=== PATIENT | female | born 1945 | race Caucasian/White ===

== ENCOUNTER → 2018-10-12 11:30 | Outpatient (CLI) | payer MEDICARE, BC ==
[2014-11-28 08:48] VITALS: BMI 28.3
[~2018-10-12 11:30] MED LIST: CELEXA40 MG PO; COZAAR50 MG PO; HYDROCHLOROTHIA25 MG PO; LOPID600 MG PO; METOPROLOL TAR100 M1 PO
== END | disposition home or self-care (01) ==
LOC: D.US 11:30
PROVIDERS: ATTEND Family Medicine
DX: M79.604 Pain in right leg (principal); R60.0 Localized edema

== ENCOUNTER → 2019-01-19 10:15 | Outpatient (CLI) | payer MEDICARE, BC ==
[2014-11-28 08:48] VITALS: BMI 28.3
--- NOTE | ~2019-01-19 | EC ---
PATIENT:ELINA SY DATE OF SERVICE: 01/19/19 SEX: F MEDICAL RECORD: [id number] DATE OF : 41 LOCATION:D[facility] AGE OF PATIENT: 73 ADMISSION DATE: 01/19/19 REFERRING PHYSICIAN: INTERPRETING PHYSICIAN: CASSIA TINOCO MD ECHOCARDIOGRAM REPORT ECHO CHARGES 4 ECHO COMPLETE Date: 01/19/19 CLINICAL DIAGNOSIS: CAD HX HTN/PACEMAKER ECHOCARDIOGRAPHIC MEASUREMENTS (adult normal given) AC root (d.<3.7cm) 3.1 cm LV Septum d (<1.2 cm> 1.2 cm Valve Excursion 1.6 cm LV Septum (systole) 1.4 cm Left Atria (s.<4.0cm> 3.5 cm LVPW d(<1.2cm) 1.5 cm RV (d.<2.3cm) 3.8 cm LVPW (sytole) 1.8 cm LV diastole(<5.6CM) 4.6 cm MV E-F(>70mm/sec) cm LV systole 2.9 cm LVOT Diameter 1.7 cm MV exc.(>10mm) 1.2 cm Est.ejection fraction (50-75%) % DOPPLER: LVIT cm/sec A 100.0cm/sec E 66.0 cm/sec LA cm/sec RVSP 27 mmHg LVOT 114 cm/sec AOP1/2T m/s Asc. Ao 129 cm/sec RVOT 91 cm/sec RA cm/sec PA 105 cm/sec AV Gradient Peak 10.01mmHg AV Mean 5.04 mmHg AV Area 2.0 cm MV Gradient Peak 5.18 mmHg MV Mean 1.81 mmHg MV Area cm COMMENTS: Foam Rubber Mixer: 2 CICI MARTINEZ Medical Laboratory Technician: 3 Dr. Archibald TAPE# PACS Pericardial Effusion N DATE OF SERVICE: Adequate 2D, color flow, spectral Doppler, and M-mode No LVH. LV internal dimension is normal. Wall motion is normal. EF is greater than or equal to 55%. Aortic valve is tricuspid. No evidence of stenosis with Doppler interrogation. Left atrium is normal at 3.5 cm. Mitral valve shows no prolapse. Mild MR. Right-sided chambers are grossly normal. Mild TR. Incidental note of pacemaker lead in the RV apex. ECHOCARDIOGRAM REPORT [id number] ELINA SY TRANSINT:[id number] Voice Confirmation ID: [id number] DOCUMENT ID: [id number] CASSIA TINOCO MD CC: [id number] DICTATION DATE: 01/24/19 1433 SURVEY ASSOCIATE: 01/24/191816 DEP CLI 01/19/19 [place] [id number] [place] [id number]
== END | disposition home or self-care (01) ==
LOC: D.HCCECHO 10:15
PROVIDERS: ATTEND Internal Medicine Interventional Cardiology
DX: I25.10 Atherosclerotic heart disease of native coronary artery without angina pectoris (principal)

== ENCOUNTER 2020-07-30 16:17 | Inpatient (IN) | payer MEDICARE, BC ==
[~2020-07-30] VITALS: Ht 165.1 cm; Wt 87.1 kg
[2020-07-30 17:52] LABS: BASOPHILS 0.4 % (0-2); EOSINOPHILS 0 % (0-7); HEMATOCRIT 39.1 % (36.0-48.0); LYMPHOCYTES 5.4 % (15-50); MCH 28.8 pg (26.0-34.0); MCHC 33.4 g/dL (31.0-37.0); MCV 86.3 fL (80.0-100.0); MEAN PLATELET VOLUME 8.1 fL (7.4-10.4); MONOCYTES 5.6 % (2-11); NEUTROPHILS 88.6 % (40-80); PLATELET COUNT 196 10x3/uL (130-400); RBC 4.53 10x6/uL (4.00-5.40); RDW 15.3 % (11.5-14.5); WBC 9.7 10x3/uL (4.8-10.8)
[2020-07-30 18:01] LABS: CALC OSMOLALITY 284 mosm/kg (275-300); CALCIUM 8.5 mg/dL (8.5-10.1); CARBON DIOXIDE 28.7 mmol/L (21.0-32.0); CHLORIDE - SERUM 100 mmol/L (98-107); CREATININE - SERUM 0.8 mg/dL (0.6-1.3); POTASSIUM - SERUM 3.8 mmol/L (3.5-5.1); SODIUM 138 mmol/L (136-145); UREA NITROGEN 20 mg/dL (7-18); eGFR NON AFRICAN AMERICAN 74 mL/min (90-120)
[2020-07-30 18:06] LABS: GLUCOSE 198 mg/dL (74-106)
[2020-07-30 18:09] LABS: INR 1.17 (0.85-1.17); PROTIME 13.8 SECONDS (11.6-15.0)
[2020-07-30 18:10] LABS: APTT 30.3 SECONDS (22.8-39.4)
[2020-07-30 18:15] LABS: ALBUMIN 3.6 g/dL (3.4-5.0); ALKALINE PHOSPHATASE 69 U/L (30-120); ALT (SGPT) 22 U/L (10-68); BILIRUBIN - TOTAL 0.43 mg/dL (0.2-1.3); CKMB 1.8 U/L (0.0-3.6); CREATINE KINASE 240 UL (21-215); PRO BNP 4622 pg/mL (0-450)
[2020-07-30 18:19] LABS: TROPONIN-I < 0.017 ng/mL (0.000-0.060)
[2020-07-30 20:52] VITALS: BP 189/66
--- NOTE | 2020-07-30 22:49 | NUR ---
PT AWAKE AND UP TO THE BATHROOM FREQUENTLY D/T LASIX. VSS AND NO C/O AT THIS TIME. WAITING FOR BED ASSIGNMENT.
[2020-07-30 23:00] VITALS: BP 174/70
[2020-07-31 04:49] VITALS: BP 177/80
[2020-07-31 06:45] VITALS: BP 169/69
[2020-07-31 11:09] LABS: SARS-CoV-2 ANTIGEN NEGATIVE- SARS-COV-2 (NEGATIVE)
--- NOTE | 2020-07-31 13:53 | MORECARE ---
CASE MANAGEMENT DISCHARGE SUMMARY PATIENT: ELINA ANGULO UNIT: [id number] ADM DATE: 07/30/20 AGE: 75 : 43 SEX: F ROOM/BED: D.0874 AUTHOR: ASHLEY RUIZ PHYSICIAN: REFERRING PHYSICIAN: ANH YUNG MD DATE OF SERVICE: 07/31/20 Case Management Discharge Planning Summary COMMENTS ENTERED DATE: 07/31/20 13:50 CT COMMENT TYPE: Discharge Planning REVIEWER: Magdiel Gonzalez Telephone conversation with patient's spouse, Zachery Angulo, at 1328 on 31 July 2020 to complete DC plan and needs per current isolation protocol. Patient lives independently with her spouse. Mr. Angulo stated that his takes care of their disabled son and he is worried about her ability to continue taking care their son after this hospitalization. Mr. Angulo stated that their home is safe and has electricity and running water. Mr. Angulo stated that the patient can enter and move about their home without difficulty. Mr. Angulo stated that they have no problems paying for medications and she fills her medications at [facility] on [address]. Mr. Angulo stated that the patient's primary care physician is Dr. Landaverde. At discharge, the Mr. Angulo plans for his to return home and feels this is a safe discharge. CM discussed availability of home health, rehab services, and medical equipment. Mr. Angulo declined HHS, SNF, and IPR at this time. Mr. Angulo stated that he would like oxygen supplies should his need them through [facility]. CLEOPATRA telephonically signed and placed in chart. Mr. Angulo stated that the patient uses a cane occasionally and has a shower chair, elevated toilet seat, and walker from her mother. Mr. Angulo voiced no other needs at this time and is satisfied with DC plan. CM will continue to follow and will assist as needed with dc plans/needs DCP REVIEW SUMMARY ANTICIPATED D/C DATE: EXPECTED LOS : CASE STATUS: DCP Initiated INITIAL REVIEW: 07/30/2020 INITIAL REVIEWER: Magdiel Gonzalez FINAL DISCHARGE DISPOSITION: : FINAL REVIEWER: FINAL REVIEW DATE: DCP Focus Questions & Answers DCP Evaluation QUESTION: ANSWER Patient's current cognitive status: : *Oriented to person, place, situation, time and present Family / Caregiver's ability to cope with chronic illness: : a. Adequate (ability to meet patient's medical needs, ensures patient attends medical appts.) Patient and/or caregiver agree upon recommended discharge plan? : Yes Patient gives permission to discuss discharge plans with: (name, relationship and number) : spouse, Zachery Angulo, Patient's ability to cope with chronic illness : d. No chronic illness Functional screen assessment: : Basic needs can adequately be met by self Does the patient have the ability to pay for or attain post discharge needs / services? : Yes Physical Status: : Independent with ADL's Family / Caregiver's ability to cope with chronic illness: : a. Adequate (ability to meet patient's medical needs, ensures patient attends medical appts.) Is there a likelihood that the patient will require additional services to return to the preadmission environment? : No Equipment needed for post hospitalization: : None Living Arrangements: : Home with Spouse/Significant Other Patient with capacity for self-care or can be cared for in same environment as prior to hospitalization? : Yes Baseline cognitive status: : *Oriented to person, place, situation, time and present Physical environment modification needed / anticipated for discharge: : No Medication Management: : Patient states can afford medications Medication Management: : Patient states can read and understand medication labels Pharmacy name(s): : [facility] [address] Does Patient have transportation to get home and to follow-up medical appointments when discharged from the hospital? : Yes Would patient like to participate in any Care Coordination programs (if applicable): : Not applicable Does the patient have electricity at home? : Yes Does the patient have running water in their house? : Yes Equipment in use: : Cane - Single Leg Equipment in use: : Shower Chair Equipment in use: : Walker - Rolling Mental health screen: : No mental health history DCP Re-evaluation QUESTION: ANSWER Would patient like to participate in any Care Coordination programs (if applicable): : Not applicable PATIENT: ELINA ANGULO ENCOUNTER: [id number] MEDICAL RECORD#: [id number] ADMISSION DATE: 07/30/2020 DISCHARGE DATE: ATTENDING MD: ANH KOCH : AGE: 75 MARITAL STATUS: M DC PLAN ID: [id number] FACILITY: [facility] PRINTED ON: 07/31/20 13:53 CT All edits/amendments must be made on the electronic document DICTATION DATE: 07/31/201352 PRODUCT CRAFTSMAN: JEM 07/31/20 135 RPT#: [id number] DC DATE: STATUS: ADM IN [facility] [address] [place] [address] END OF REPORT
[2020-07-31 13:56] VITALS: BP 150/59; BMI 32.0
--- NOTE | 2020-07-31 18:52 | NUR ---
NEW IV STARTED TO LEFT AC D/T INFILTRATION TO RIGHT FA. PT TOLERATED WELL. FLUSHED WITH 10ML NS, BLOOD RETURN NOTED.
[2020-07-31 21:21] VITALS: BP 173/64
[2020-08-01 00:27] VITALS: BP 159/62
[2020-08-01 06:16] VITALS: BP 172/82
[2020-08-01 06:25] LABS: BASOPHILS 0.4 % (0-2); EOSINOPHILS 0 % (0-7); HEMATOCRIT 37.7 % (36.0-48.0); HEMOGLOBIN 12.7 g/dL (12-16); MCH 28.9 pg (26.0-34.0); MCHC 33.8 g/dL (31.0-37.0); MCV 85.5 fL (80.0-100.0); MEAN PLATELET VOLUME 8.6 fL (7.4-10.4); MONOCYTES 11.8 % (2-11); NEUTROPHILS 72.8 % (40-80); PLATELET COUNT 223 10x3/uL (130-400); RBC 4.41 10x6/uL (4.00-5.40); RDW 14.9 % (11.5-14.5)
[2020-08-01 06:37] LABS: WBC 6.6 10x3/uL (4.8-10.8)
[2020-08-01 06:38] LABS: CALCIUM 8.6 mg/dL (8.5-10.1); CARBON DIOXIDE 30.5 mmol/L (21.0-32.0); CHLORIDE - SERUM 102 mmol/L (98-107); CREATININE - SERUM 0.7 mg/dL (0.6-1.3); POTASSIUM - SERUM 3.4 mmol/L (3.5-5.1); SODIUM 140 mmol/L (136-145); eGFR NON AFRICAN AMERICAN 86 mL/min (90-120)
[2020-08-01 06:54] LABS: CALC OSMOLALITY 285 mosm/kg (275-300); GLUCOSE 120 mg/dL (74-106); UREA NITROGEN 29 mg/dL (7-18)
--- NOTE | 2020-08-01 08:15 | MORECARE ---
CASE MANAGEMENT DISCHARGE SUMMARY PATIENT: ELINA ANGULO UNIT: [id number] ADM DATE: 07/30/20 AGE: 75 : 43 SEX: F ROOM/BED: D.0678 AUTHOR: ASHLEY RUIZ PHYSICIAN: REFERRING PHYSICIAN: ANH YUNG MD DATE OF SERVICE: 08/01/20 Case Management Discharge Planning Summary COMMENTS ENTERED DATE: 07/31/20 13:50 CT COMMENT TYPE: Discharge Planning REVIEWER: Magdiel Gonzalez Telephone conversation with patient's spouse, Zachery Angulo, at 1328 on 31 July 2020 to complete DC plan and needs per current isolation protocol. Patient lives independently with her spouse. Mr. Angulo stated that his takes care of their disabled son and he is worried about her ability to continue taking care their son after this hospitalization. Mr. Angulo stated that their home is safe and has electricity and running water. Mr. Angulo stated that the patient can enter and move about their home without difficulty. Mr. Angulo stated that they have no problems paying for medications and she fills her medications at [facility] on [address]. Mr. Angulo stated that the patient's primary care physician is Dr. Landaverde. At discharge, the Mr. Angulo plans for his to return home and feels this is a safe discharge. CM discussed availability of home health, rehab services, and medical equipment. Mr. Angulo declined HHS, SNF, and IPR at this time. Mr. Angulo stated that he would like oxygen supplies should his need them through [facility]. CLEOPATRA telephonically signed and placed in chart. Mr. Angulo stated that the patient uses a cane occasionally and has a shower chair, elevated toilet seat, and walker from her mother. Mr. Angulo voiced no other needs at this time and is satisfied with DC plan. CM will continue to follow and will assist as needed with dc plans/needs DCP REVIEW SUMMARY ANTICIPATED D/C DATE: EXPECTED LOS : CASE STATUS: DCP Initiated INITIAL REVIEW: 07/30/2020 INITIAL REVIEWER: Magdiel Gonzalez FINAL DISCHARGE DISPOSITION: : FINAL REVIEWER: FINAL REVIEW DATE: DCP Focus Questions & Answers DCP Evaluation QUESTION: ANSWER Patient's ability to cope with chronic illness : d. No chronic illness Patient gives permission to discuss discharge plans with: (name, relationship and number) : spouse, Zachery Angulo, Patient and/or caregiver agree upon recommended discharge plan? : Yes Family / Caregiver's ability to cope with chronic illness: : a. Adequate (ability to meet patient's medical needs, ensures patient attends medical appts.) Patient's current cognitive status: : *Oriented to person, place, situation, time and present Family / Caregiver's ability to cope with chronic illness: : a. Adequate (ability to meet patient's medical needs, ensures patient attends medical appts.) Physical Status: : Independent with ADL's Does the patient have the ability to pay for or attain post discharge needs / services? : Yes Functional screen assessment: : Basic needs can adequately be met by self Living Arrangements: : Home with Spouse/Significant Other Equipment needed for post hospitalization: : None Is there a likelihood that the patient will require additional services to return to the preadmission environment? : No Baseline cognitive status: : *Oriented to person, place, situation, time and present Patient with capacity for self-care or can be cared for in same environment as prior to hospitalization? : Yes Physical environment modification needed / anticipated for discharge: : No Medication Management: : Patient states can read and understand medication labels Medication Management: : Patient states can afford medications Pharmacy name(s): : [facility] [address] Does Patient have transportation to get home and to follow-up medical appointments when discharged from the hospital? : Yes Would patient like to participate in any Care Coordination programs (if applicable): : Not applicable Does the patient have electricity at home? : Yes Does the patient have running water in their house? : Yes Equipment in use: : Walker - Rolling Equipment in use: : Shower Chair Equipment in use: : Cane - Single Leg Mental health screen: : No mental health history DCP Re-evaluation QUESTION: ANSWER Would patient like to participate in any Care Coordination programs (if applicable): : Not applicable PATIENT: ELINA ANGULO ENCOUNTER: [id number] MEDICAL RECORD#: [id number] ADMISSION DATE: 07/30/2020 DISCHARGE DATE: ATTENDING MD: ANH KOCH : AGE: 75 MARITAL STATUS: M DC PLAN ID: [id number] FACILITY: [facility] PRINTED ON: 08/01/20 8:15 CT All edits/amendments must be made on the electronic document DICTATION DATE: 08/01/20814 FOUNDRY HAND: JEM 08/01/20814 RPT#: [id number] DC DATE: STATUS: ADM IN [facility] [address] [place] [address] END OF REPORT
--- NOTE | 2020-08-01 08:38 | NUR ---
AM MEDS GIVEN AT THIS TIME WITH BREAKFAST TRAY. PT SITTING ON SIDE ON OF BED WATCHING TV. RR EVEN NON LABORED, PRODUCTIVE COUGH NOTED. O2 IN PLACE PER NC. PT AAOX4, PLEASANT AND DENIES ANY PAIN OR NEEDS. CLWR.
[2020-08-01 09:00] VITALS: BP 174/93
[2020-08-01 12:00] VITALS: BP 136/65
[2020-08-01 12:58] VITALS: Ht 165.1 cm; Wt 87.1 kg
--- NOTE | 2020-08-01 14:44 | NUR ---
SPOKE WITH INFECTION CONTROL AND DR KRUEGER REGARDING NEGATIVE PCR. PT ABLE TO GET OUT OF ISOLATION.
--- NOTE | 2020-08-01 14:46 | NUR ---
COVID 19 PCR Negative, may discontinue Enhanced Droplet Isolation.
--- NOTE | 2020-08-01 15:22 | NUR ---
FAMILY BROUGHT SOME CLOTHING TO ROOM AT THIS TIME, MEDS GIVEN PER EMAR. PT SITTING ON SIDE OF BED. RR EVEN NON LABORED. AWAKE AND ALERT. NO NEEDS VOICED. CLWR.
[2020-08-01 20:16] VITALS: BP 168/71
[2020-08-01 23:46] VITALS: BP 174/75
[2020-08-02 05:18] LABS: BASOPHILS 0.1 % (0-2); EOSINOPHILS 0.1 % (0-7); HEMATOCRIT 39.4 % (36.0-48.0); HEMOGLOBIN 13.1 g/dL (12-16); LYMPHOCYTES 14.4 % (15-50); MCH 28.5 pg (26.0-34.0); MCHC 33.3 g/dL (31.0-37.0); MCV 85.7 fL (80.0-100.0); MEAN PLATELET VOLUME 8.1 fL (7.4-10.4); MONOCYTES 4.7 % (2-11); NEUTROPHILS 80.7 % (40-80); PLATELET COUNT 240 10x3/uL (130-400); RDW 15.1 % (11.5-14.5)
[2020-08-02 05:24] VITALS: BP 153/72
[2020-08-02 05:47] LABS: CALC OSMOLALITY 289 mosm/kg (275-300); CALCIUM 8.6 mg/dL (8.5-10.1); CHLORIDE - SERUM 100 mmol/L (98-107); CREATININE - SERUM 0.7 mg/dL (0.6-1.3); POTASSIUM - SERUM 3.8 mmol/L (3.5-5.1); SODIUM 139 mmol/L (136-145); UREA NITROGEN 29 mg/dL (7-18); eGFR NON AFRICAN AMERICAN 86 mL/min (90-120)
[2020-08-02 05:48] LABS: GLUCOSE 200 mg/dL (74-106)
[2020-08-02 07:51] VITALS: BP 144/73
--- NOTE | 2020-08-02 08:15 | NUR ---
PATIENT AWAKE AND ALERT. RESP EVEN AND UNLABORED SOME SHORTNESS OF BREATH, COUGH WET WITH NO SPUTUM. LUNG SOUNDS WET WITH CRACKLES BILATERALLY. HEART SOUNDS REGULAR RATE AND RYTHYM. IV TO LEFT AC SALINE LOCKED. ABDOMEN SOFT AND NON TENDER. BOWEL SOUNDS ACTIVE X 4 QUADS.
[2020-08-02 11:41] VITALS: BP 163/76
[2020-08-02 16:08] VITALS: BP 156/77
[2020-08-02 20:39] VITALS: BP 159/68
[2020-08-03 01:14] VITALS: BP 124/63
[2020-08-03 01:33] VITALS: BP 156/66
[2020-08-03 06:19] LABS: BASOPHILS 0.2 % (0-2); EOSINOPHILS 0.2 % (0-7); HEMATOCRIT 44.2 % (36.0-48.0); HEMOGLOBIN 14.5 g/dL (12-16); LYMPHOCYTES 25.2 % (15-50); MCH 28.3 pg (26.0-34.0); MCHC 32.9 g/dL (31.0-37.0); MCV 86.2 fL (80.0-100.0); MEAN PLATELET VOLUME 8.2 fL (7.4-10.4); MONOCYTES 10.8 % (2-11); NEUTROPHILS 63.6 % (40-80); RBC 5.13 10x6/uL (4.00-5.40); RDW 14.9 % (11.5-14.5)
[2020-08-03 06:25] LABS: PLATELET COUNT 300 10x3/uL (130-400); WBC 11.3 10x3/uL (4.8-10.8)
--- NOTE | 2020-08-03 06:30 | NUR ---
BEDSIDE REPORT RECEIVED. IV TO LEFT AC PATENT. RESP EVEN UNLABORED ON 2L
[2020-08-03 06:41] VITALS: BP 166/78
[2020-08-03 07:18] LABS: ANION GAP 14.9 mmol/L (8-16); CALCIUM 9.2 mg/dL (8.5-10.1); CARBON DIOXIDE 28.6 mmol/L (21.0-32.0); POTASSIUM - SERUM 3.5 mmol/L (3.5-5.1)
[2020-08-03 11:16] VITALS: BP 149/70
--- NOTE | 2020-08-03 13:15 | NUR ---
Nutrition Follow-up: Covid (-). Pt reports appetite improving. Ate 100% of breakfast this AM. Diet: Diabetic No PO intake recorded No new wt; last wt: 192# (07/31) Labs noted: Glu 184 Meds noted: Solumedrol, Lasix, Humalog, HCTZ, electrolyte protocol -Encourage PO intake and honor food preferences within diet restrictions. -Need new wt. -RD will follow up within 4-5 days.
[2020-08-03 16:04] VITALS: BP 161/83
--- NOTE | 2020-08-03 18:37 | NUR ---
PATIENT AWAKE ALERT ORIENT. RESP EVEN AND UNLABORED. NO CURRENT PAIN OR DISTESS VOICED. LUNG SOUNDS CLEAR BUT DIMINISHED IN LOWER LOBES. HEART SOUNDS REGULAR RATE AND RYTHYM. BOWEL SOUNDS ACTIVE. ABDOMEN NON TENDER AND SOFT.
--- NOTE | 2020-08-03 19:00 | NUR ---
REPORT RECEIVED. PATIENT IS AAOX4, SITTING UP ON SIDE OF BED. NO S/S OF DISTRESS OBSERVED, RR EVEN AND UNLABORED ON 2L O2 VIA NC. PIV TO LT WRIST, ABX INFUSING. PATIENT DENIES NEEDS AT THIS TIME. CL IN REACH, BED LOCKED AND LOWERED. WILL CPOC.
[2020-08-03 20:00] VITALS: BP 164/73
[2020-08-04] VITALS: BP 149/72
[2020-08-04 04:00] VITALS: BP 175/83
[2020-08-04 07:11] LABS: BASOPHILS 0.4 % (0-2); EOSINOPHILS 0.1 % (0-7); HEMATOCRIT 45.1 % (36.0-48.0); HEMOGLOBIN 14.6 g/dL (12-16); LYMPHOCYTES 12.9 % (15-50); MCH 27.8 pg (26.0-34.0); MCHC 32.3 g/dL (31.0-37.0); MEAN PLATELET VOLUME 8.1 fL (7.4-10.4); MONOCYTES 3.5 % (2-11); NEUTROPHILS 83.1 % (40-80); PLATELET COUNT 341 10x3/uL (130-400); RBC 5.24 10x6/uL (4.00-5.40); RDW 15.2 % (11.5-14.5); WBC 12.7 10x3/uL (4.8-10.8)
[2020-08-04 07:17] LABS: ANION GAP 12.9 mmol/L (8-16); CALCIUM 9.5 mg/dL (8.5-10.1); CARBON DIOXIDE 28.6 mmol/L (21.0-32.0)
[2020-08-04 07:20] LABS: POTASSIUM - SERUM 4.5 mmol/L (3.5-5.1)
[2020-08-04 07:53] VITALS: BP 143/78
[2020-08-04 11:40] VITALS: BP 146/82
[2020-08-04] MEDS ORDERED: NORVASC5 MG PO (12:13)
[2020-08-04] MEDS ORDERED: COZAAR50 MG PO (12:13)
[2020-08-04] MEDS ORDERED: STERAPRED DS 1010 MG PO (12:15)
[2020-08-04] MEDS ORDERED: ZPAK PO (12:16)
[2020-08-04] MEDS ORDERED: TRELEGY ELLIPT1 EACH INH (12:16)
[2020-08-04] MEDS ORDERED: ALBUTEROL SULF8.5 GM INH (12:17)
--- NOTE | 2020-08-04 14:16 | NUR ---
SALINE LOCK REMOVED, DISCHARGE PAPERS DISCUSSED AND W/C TO CAR.
--- NOTE | 2020-08-06 14:45 | MORECARE ---
CASE MANAGEMENT DISCHARGE SUMMARY PATIENT: ELINA ANGULO UNIT: [id number] ADM DATE: 07/30/20 AGE: 75 : 43 SEX: F ROOM/BED: D.9873 AUTHOR: ASHLEY RUIZ PHYSICIAN: REFERRING PHYSICIAN: ANH YUNG MD DATE OF SERVICE: 08/06/20 Case Management Discharge Planning Summary COMMENTS ENTERED DATE: 07/31/20 13:50 CT COMMENT TYPE: Discharge Planning REVIEWER: Magdiel Gonzalez Telephone conversation with patient's spouse, Zachery Angulo, at 1328 on 31 July 2020 to complete DC plan and needs per current isolation protocol. Patient lives independently with her spouse. Mr. Angulo stated that his takes care of their disabled son and he is worried about her ability to continue taking care their son after this hospitalization. Mr. Angulo stated that their home is safe and has electricity and running water. Mr. Angulo stated that the patient can enter and move about their home without difficulty. Mr. Angulo stated that they have no problems paying for medications and she fills her medications at [facility] on [address]. Mr. Angulo stated that the patient's primary care physician is Dr. Landaverde. At discharge, the Mr. Angulo plans for his to return home and feels this is a safe discharge. CM discussed availability of home health, rehab services, and medical equipment. Mr. Angulo declined HHS, SNF, and IPR at this time. Mr. Angulo stated that he would like oxygen supplies should his need them through [facility]. CLEOPATRA telephonically signed and placed in chart. Mr. Angulo stated that the patient uses a cane occasionally and has a shower chair, elevated toilet seat, and walker from her mother. Mr. Angulo voiced no other needs at this time and is satisfied with DC plan. CM will continue to follow and will assist as needed with dc plans/needs DCP REVIEW SUMMARY ANTICIPATED D/C DATE: EXPECTED LOS : CASE STATUS: DCP Initiated INITIAL REVIEW: 07/30/2020 INITIAL REVIEWER: Magdiel Gonzalez FINAL DISCHARGE DISPOSITION: : FINAL REVIEWER: FINAL REVIEW DATE: DCP Focus Questions & Answers DCP Evaluation QUESTION: ANSWER Patient's current cognitive status: : *Oriented to person, place, situation, time and present Family / Caregiver's ability to cope with chronic illness: : a. Adequate (ability to meet patient's medical needs, ensures patient attends medical appts.) Patient and/or caregiver agree upon recommended discharge plan? : Yes Patient gives permission to discuss discharge plans with: (name, relationship and number) : spouse, Zachery Angulo, Patient's ability to cope with chronic illness : d. No chronic illness Functional screen assessment: : Basic needs can adequately be met by self Does the patient have the ability to pay for or attain post discharge needs / services? : Yes Physical Status: : Independent with ADL's Family / Caregiver's ability to cope with chronic illness: : a. Adequate (ability to meet patient's medical needs, ensures patient attends medical appts.) Is there a likelihood that the patient will require additional services to return to the preadmission environment? : No Equipment needed for post hospitalization: : None Living Arrangements: : Home with Spouse/Significant Other Patient with capacity for self-care or can be cared for in same environment as prior to hospitalization? : Yes Baseline cognitive status: : *Oriented to person, place, situation, time and present Physical environment modification needed / anticipated for discharge: : No Medication Management: : Patient states can afford medications Medication Management: : Patient states can read and understand medication labels Pharmacy name(s): : [facility] [address] Does Patient have transportation to get home and to follow-up medical appointments when discharged from the hospital? : Yes Would patient like to participate in any Care Coordination programs (if applicable): : Not applicable Does the patient have electricity at home? : Yes Does the patient have running water in their house? : Yes Equipment in use: : Cane - Single Leg Equipment in use: : Shower Chair Equipment in use: : Walker - Rolling Mental health screen: : No mental health history DCP Re-evaluation QUESTION: ANSWER Would patient like to participate in any Care Coordination programs (if applicable): : Not applicable PATIENT: ELINA ANGULO ENCOUNTER: [id number] MEDICAL RECORD#: [id number] ADMISSION DATE: 07/30/2020 DISCHARGE DATE: 08/04/2020 ATTENDING MD: ANH KOCH : AGE: 75 MARITAL STATUS: M DC PLAN ID: [id number] FACILITY: [facility] PRINTED ON: 08/06/20 14:45 CT All edits/amendments must be made on the electronic document DICTATION DATE: 08/06/201444 TANK BUILDER SUPERVISOR: JEM 08/06/201444 RPT#: [id number] DC DATE:08/04/20 STATUS: DIS IN [facility] [address] [place] [address] END OF REPORT
== END 2020-08-04 14:17 | disposition home or self-care (01) | DRG 202 ==
LOC: D.ER 16:17 → D.M2 21:39 → D.EDHOLD 21:39 → D.M2 07-31 12:05
PROVIDERS: Emergency Medicine; Family Medicine; ADMIT Family Medicine; ATTEND Family Medicine
DX: J20.9 Acute bronchitis, unspecified (principal); J44.1 Chronic obstructive pulmonary disease with (acute) exacerbation; J44.0 Chronic obstructive pulmonary disease with (acute) lower respiratory infection; Z20.822 Contact with and (suspected) exposure to COVID-19; F17.200 Nicotine dependence, unspecified, uncomplicated; E11.9 Type 2 diabetes mellitus without complications; I10 Essential (primary) hypertension